=== PATIENT | male | born 1960 | race Caucasian/White ===

== ENCOUNTER 2017-08-26 19:29 | Inpatient (IN) | payer MEDICAID, OTHER ==
[~2017-08-26] VITALS: Ht 190.5 cm; Wt 68.0 kg
[2017-08-26] MEDS ORDERED: ondansetron/PF 4mg/2ml inj IV ONE ×2 (20:00→20:20)
[2017-08-26] MEDS ORDERED: normal saline 1000ML IV soln IVB ONE ×2 (20:00→21:15)
[2017-08-26 20:43] LABS: BASOPHILS % (AUTO) 0.4 % (0-1); EOSINOPHILS # (AUTO) 0.1 X10'3 (0-0.9); EOSINOPHILS % (AUTO) 1.3 % (0-6); HEMATOCRIT 47.3 % (42.0-52.0); HEMOGLOBIN 15.7 g/dl (14.0-17.9); LYMPHOCYTES # (AUTO) 0.9 X10'3 (1.1-4.8); LYMPHOCYTES % (AUTO) 8.6 % (21-51); MEAN CORPUSCULAR HEMOGLOBIN 26.9 PG (27.0-31.0); MEAN CORPUSCULAR HGB CONC 33.2 % (33.0-36.5); MEAN CORPUSCULAR VOLUME 81.1 FL (78-98); MEAN PLATELET VOLUME 8.5 FL (7.4-10.4); NEUTROPHILS # (AUTO) 8.8 X10'3 (1.8-7.7); NEUTROPHILS % (AUTO) 80.7 % (42-75); PLATELET COUNT 364 X10'3 (140-440); RED BLOOD COUNT 5.84 X10'6 (4.70-6.10); RED CELL DISTRIBUTION WIDTH 13.2 % (11.5-14.5); WHITE BLOOD COUNT 10.9 X10'3 (4.5-11.0)
[2017-08-26 20:55] LABS: ABG BASE EXCESS -17.3 mmol/L (-2.0-3.0); ABG HCO3 9.1 mmol/L (22.0-26.0); ABG OXYGEN SATURATION 97.5 % (95-98); ABG PCO2 (T) 24.9 mmHg (35.0-48.0); ABG PH (T) 7.183 (7.350-7.450); ABG PO2 (T) 105.2 mmHg (83-108); FCOHb 0.8 % (0.5-1.5); FMetHb 0.3 % (0.3-1.12); FO2Hb 96.4 % (94-100); PATIENT TEMPERATURE 37.1; RESPIRATORY RATE (OBSERVED) 18 b/min; TOTAL HEMOGLOBIN 15.3 G/dl (14.0-18.0)
[2017-08-26] MEDS ORDERED: temazepam 15mg capsule PO PRN (21:00)
[2017-08-26 21:06] LABS: ALANINE AMINOTRANSFERASE 16 U/L (12-78); ALBUMIN 3.6 G/DL (3.4-5.0); ALBUMIN/GLOBULIN RATIO 0.9 (1.1-1.5); ALKALINE PHOSPHATASE 106 IU/L (46-116); ANION GAP 25 (8-16); ASPARTATE AMINO TRANSFERASE 22 U/L (10-37); BILIRUBIN,TOTAL 0.6 MG/DL (0.1-1.0); BLOOD UREA NITROGEN 37 MG/DL (7-18); BUN/CREATININE RATIO 25.5 (5.4-32.0); CALCIUM 8.9 MG/DL (8.5-10.1); CHLORIDE 100 MMOL/L (99-107); CREATININE 1.45 MG/DL (0.60-1.10); LIPASE < 50 U/L (73-393); POTASSIUM 5.3 MMOL/L (3.5-5.1); SODIUM 138 MMOL/L (135-145); TOTAL PROTEIN 7.8 G/DL (6.4-8.2); TROPONIN I < 0.04 NG/ML (0.0-0.05); eGFR 50 ML/MIN
[2017-08-26 21:09] LABS: GLUCOSE 495 MG/DL (70-104); TOTAL CARBON DIOXIDE 13.3 MMOL/L (24-32)
[2017-08-26] MEDS ORDERED: insulin regular, human 10 units/0.1 ml syringe IV ONE (21:15)
[2017-08-26] MEDS ORDERED: potassium CL 20mEq in D5-1/2NS 1,000 ML IV PRN (21:44)
[2017-08-26] MEDS ORDERED: insulin regular, DKA only 100 UNIT in normal saline 100ml IV soln 99 ML IV SCH ×2 (21:44)
[2017-08-26] MEDS ORDERED: sodium bicarbonate (8.4%) inj. 50 MEQ in sodium chloride 0.45% 500ml 250 ML IV PRN (21:44)
[2017-08-26] MEDS ORDERED: potassium Cl 20 mEq SR tablet PO PRN ×2 (21:45)
[2017-08-26] MEDS ORDERED: sodium phosphate inj. 15 MMOL in dextrose 5%-water 150 ML IV PRN (21:45)
[2017-08-26] MEDS ORDERED: acetaminophen 325mg tablet PO PRN ×2 (21:45)
[2017-08-26] MEDS ORDERED: sodium phosphate inj. 30 MMOL in dextrose 5%-water 250 ML IV PRN (21:45)
[2017-08-26] MEDS ORDERED: metoclopramide 5 mg/ml inj IV PRN (21:45)
[2017-08-26] MEDS ORDERED: ondansetron/PF 4mg/2ml inj IV PRN (21:45)
[2017-08-26] MEDS ORDERED: Neutra Phos packet PO PRN (21:45)
[2017-08-26] MEDS ORDERED: HYDROcodone/acetaminophen 10/325mg tab PO PRN (21:45)
[2017-08-26] MEDS ORDERED: magnesium hydroxide 30ml (MOM) UD suspension PO PRN (21:45)
[2017-08-26] MEDS ORDERED: mag hydrox/Alum hydrox/simeth 30ml oral suspension PO PRN (21:45)
[2017-08-26] MEDS ORDERED: potassium Cl 40MEQ/NS 500ml 500 ML IV PRN ×2 (21:45)
[2017-08-26] MEDS ORDERED: insulin regular, human 10 units/0.1 ml syringe SQ ONE (23:00)
[2017-08-26] MEDS: enoxaparin 40mg/0.4ml syringe SUBCUT SCH (23:09)
[2017-08-26] MEDS: normal saline 1000ml 1,000 ML IV SCH (23:09)
[2017-08-27] MEDS: normal saline 1000ml 1,000 ML IV SCH ×4 (02:10→23:14)
[2017-08-27 02:37] LABS: CLARITY,URINE CLEAR (Clear); COLOR,URINE YELLOW (Yellow); GLUCOSE, URINE >=1000 mg/dl (Neg); KETONES,URINE >=80 mg/dl (Neg); LEUKOCYTE ESTERASE ,URINE NEGATIVE (Neg); NITRITES, URINE NEGATIVE (Neg); OCCULT BLOOD,URINE NEGATIVE (Neg); PROTEIN,URINE TRACE mg/dl (Neg); UROBILINOGEN,URINE 0.2 E.U/dL (0.2-1.0)
[2017-08-27 02:48] LABS: UA COLLECTION TYPE CLN CATCH MIDSTREAM
[2017-08-27 02:49] LABS: BACTERIA,URINE FEW /HPF (Neg); RBC,URINE NONE SEEN /HPF (0-2); SQUAMOUS EPITHELIAL CELL,UR FEW /LPF (FEW); WBC,URINE NONE SEEN /HPF (0-4)
[2017-08-27 07:57] LABS: ALBUMIN 2.8 G/DL (3.4-5.0); ANION GAP 10 (8-16); BLOOD UREA NITROGEN 25 MG/DL (7-18); BUN/CREATININE RATIO 20.2 (5.4-32.0); CALCIUM 8.2 MG/DL (8.5-10.1); CHLORIDE 112 MMOL/L (99-107); CREATININE 1.24 MG/DL (0.60-1.10); GLUCOSE 131 MG/DL (70-104); POTASSIUM 3.4 MMOL/L (3.5-5.1); SODIUM 145 MMOL/L (135-145); TOTAL CARBON DIOXIDE 23.3 MMOL/L (24-32); eGFR 60 ML/MIN
[2017-08-27 08:00] VITALS: BP 130/71
[2017-08-27] MEDS: K and/or MAG REPLACEMENT MC SCH (08:00)
[2017-08-27 08:17] LABS: PHOSPHORUS 0.7 MG/DL (2.3-4.5)
[2017-08-27] MEDS: enoxaparin 40mg/0.4ml syringe SUBCUT SCH (09:08)
[2017-08-27] MEDS ORDERED: potassium phosphate inj 30 MMOL in normal saline 500ml IV soln 490 ML IV ONE (09:30)
[2017-08-27 10:56] LABS: ALANINE AMINOTRANSFERASE 9 U/L (12-78); ALBUMIN 2.8 G/DL (3.4-5.0); ALBUMIN/GLOBULIN RATIO 0.9 (1.1-1.5); ALKALINE PHOSPHATASE 74 IU/L (46-116); ANION GAP 8 (8-16); ASPARTATE AMINO TRANSFERASE 19 U/L (10-37); BILIRUBIN,TOTAL 0.4 MG/DL (0.1-1.0); BLOOD UREA NITROGEN 23 MG/DL (7-18); BUN/CREATININE RATIO 18.4 (5.4-32.0); CALCIUM 8.1 MG/DL (8.5-10.1); CHLORIDE 113 MMOL/L (99-107); CREATININE 1.25 MG/DL (0.60-1.10); GLUCOSE 83 MG/DL (70-104); MAGNESIUM 1.6 MG/DL (1.5-2.4); POTASSIUM 3.5 MMOL/L (3.5-5.1); SODIUM 147 MMOL/L (135-145); TOTAL CARBON DIOXIDE 26.4 MMOL/L (24-32); eGFR 60 ML/MIN
[2017-08-27 10:59] LABS: PHOSPHORUS 1.1 MG/DL (2.3-4.5)
[2017-08-27 11:00] VITALS: BP 123/70
[2017-08-27] MEDS ORDERED: glucagon, human recombinant 1mg kit SUBCUT PRN (11:55)
[2017-08-27] MEDS ORDERED: MESSAGE TO PHARMACY PO ONE (11:55)
[2017-08-27] MEDS ORDERED: dextrose 50%-water 50ml dispensing syringe IV PRN ×2 (11:55)
[2017-08-27] MEDS ORDERED: dextrose ORAL solution 15 GM/59 ML bottle PO PRN ×2 (11:55)
[2017-08-27] MEDS: insulin Lispro (HumaLOG) vial - multi-dose SQ SCH ×2 (11:58→18:49)
[2017-08-27 12:17] LABS: HEMOGLOBIN A1C 11.4 % (4.5-6.2)
[2017-08-27] MEDS: Neutra Phos packet PO SCH ×2 (13:00→21:01)
[2017-08-27 15:00] VITALS: BP 112/59
[2017-08-27 18:00] VITALS: BP 124/56
[2017-08-27] MEDS ORDERED: insulin glargine (Lantus) pen - multi-dose SQ SCH (21:00)
[2017-08-27 22:00] VITALS: BP 112/74
[2017-08-28 02:00] VITALS: BP 103/64
[2017-08-28 06:00] VITALS: BP 111/72
[2017-08-28] MEDS: K and/or MAG REPLACEMENT MC SCH (08:00)
[2017-08-28] MEDS: Neutra Phos packet PO SCH ×2 (08:12→12:47)
[2017-08-28] MEDS: normal saline 1000ml 1,000 ML IV SCH (08:13)
[2017-08-28] MEDS: enoxaparin 40mg/0.4ml syringe SUBCUT SCH (08:13)
[2017-08-28] MEDS: insulin Lispro (HumaLOG) vial - multi-dose SQ SCH (08:57)
[2017-08-28 11:00] VITALS: BP 105/66
== END 2017-08-28 13:40 | disposition home or self-care (01) | DRG 420 ==
LOC: ER 19:30 → ED HOLD 21:44 → PCU 3S 08-27 07:40
PROVIDERS: ADMIT Hospitalist; ATTEND Family Medicine
DX: E10.10 Type 1 diabetes mellitus with ketoacidosis without coma (principal); E87.0 Hyperosmolality and hypernatremia; E10.22 Type 1 diabetes mellitus with diabetic chronic kidney disease; E83.39 Other disorders of phosphorus metabolism; E86.0 Dehydration; E10.40 Type 1 diabetes mellitus with diabetic neuropathy, unspecified; N18.9 Chronic kidney disease, unspecified; Z79.4 Long term (current) use of insulin; Z90.49 Acquired absence of other specified parts of digestive tract; Z79.899 Other long term (current) drug therapy; Z68.1 Body mass index [BMI] 19.9 or less, adult; Z91.19 Patient's noncompliance with other medical treatment and regimen
CPT/HCPCS: 36415; 36600; 71045; 80048; 80053; 81001; 82803; 82948; 83036; 83690; 83735; 84100; 84484; 85018; 85025; 87070; 93005; 96374; 96376; 97162; 99285; J1650; J1815; J2405; J7030

== ENCOUNTER 2020-05-15 12:46 | Inpatient (IN) | payer MEDICAID, MEDICARE ==
[~2020-05-15] VITALS: Ht 190.5 cm; Wt 84.1 kg
[2020-05-15 13:39] LABS: BASOPHILS # (AUTO) 0.1 X10'3 (0-0.2); BASOPHILS % (AUTO) 0.6 % (0-1); EOSINOPHILS # (AUTO) 0.2 X10'3 (0-0.9); EOSINOPHILS % (AUTO) 1.9 % (0-6); HEMATOCRIT 37.6 % (42.0-52.0); HEMOGLOBIN 12.3 g/dl (14.0-17.9); LYMPHOCYTES # (AUTO) 1.8 X10'3 (1.1-4.8); MEAN CORPUSCULAR HEMOGLOBIN 26.9 PG (27.0-31.0); MEAN CORPUSCULAR HGB CONC 32.8 g/dL (33.0-36.5); MEAN CORPUSCULAR VOLUME 82.1 FL (78-98); MONOCYTES # (AUTO) 0.6 X10'3 (0-0.9); MONOCYTES % (AUTO) 4.9 % (2-12); NEUTROPHILS # (AUTO) 9.3 X10'3 (1.8-7.7); NEUTROPHILS % (AUTO) 77.6 % (42-75); PLATELET COUNT 284 X10'3 (140-440); RED BLOOD COUNT 4.58 X10'6 (4.70-6.10); RED CELL DISTRIBUTION WIDTH 12.9 % (11.5-14.5)
[2020-05-15 13:43] LABS: PARTIAL THROMBOPLASTIN TIME 24 SECONDS (22-32)
[2020-05-15 13:57] LABS: ALANINE AMINOTRANSFERASE 30 U/L (12-78); ALBUMIN 3.8 G/DL (3.4-5.0); ALBUMIN/GLOBULIN RATIO 1.1 (1.1-1.5); ALKALINE PHOSPHATASE 114 IU/L (46-116); ANION GAP 11 (8-16); ASPARTATE AMINO TRANSFERASE 45 U/L (10-37); BILIRUBIN,TOTAL 0.7 MG/DL (0.1-1.0); BLOOD UREA NITROGEN 17 MG/DL (7-18); BUN/CREATININE RATIO 19.1 (5.4-32.0); CALCIUM 8.8 MG/DL (8.5-10.1); CHLORIDE 103 MMOL/L (99-107); CREATININE 0.89 MG/DL (0.60-1.10); GLUCOSE 288 MG/DL (70-104); POTASSIUM 4.1 MMOL/L (3.5-5.1); SODIUM 138 MMOL/L (135-145); TOTAL CARBON DIOXIDE 24.4 MMOL/L (24-32); TOTAL PROTEIN 7.3 G/DL (6.4-8.2); eGFR 87 ML/MIN
[2020-05-15] MEDS ORDERED: morphine 4 MG/ML inj SYRINge IV ONE (14:00)
--- NOTE | 2020-05-15 14:35 | NUR ---
PT TO CT SCAN IN STABLE CONDITION VIA PHILLIP
[2020-05-15] MEDS ORDERED: mag hydrox/Alum hydrox/simeth 30ml oral suspension PO PRN (15:30)
[2020-05-15] MEDS ORDERED: magnesium 4gm in 100ml NS 100 ML IV PRN (15:30)
[2020-05-15] MEDS ORDERED: diphenhydrAMINE 25mg capsule PO PRN (15:30)
[2020-05-15] MEDS ORDERED: acetaminophen 325mg tablet PO PRN ×2 (15:30)
[2020-05-15] MEDS ORDERED: acetaminophen 650mg rectal suppository RC PRN (15:30)
[2020-05-15] MEDS ORDERED: magnesium hydroxide 30ml (MOM) UD suspension PO PRN (15:30)
[2020-05-15] MEDS ORDERED: magnesium 2GM in 50ml NS 50 ML IV PRN (15:30)
[2020-05-15] MEDS ORDERED: potassium Cl 20 mEq SR tablet PO PRN ×2 (15:30)
[2020-05-15] MEDS ORDERED: morphine 2 MG/ML inj. syringe IV PRN (15:30)
[2020-05-15] MEDS ORDERED: potassium CL 10mEq/100ml bag 100 ML IV PRN ×2 (15:30)
[2020-05-15] MEDS ORDERED: bisacodyl 10mg suppository rectal RC PRN (15:30)
[2020-05-15] MEDS: normal saline 1000ml 1,000 ML IV SCH (15:37)
[2020-05-15 15:48] LABS: CLARITY,URINE CLEAR (Clear); COLOR,URINE YELLOW (Yellow); GLUCOSE, URINE >=1000 mg/dl (Neg); KETONES,URINE TRACE mg/dl (Neg); LEUKOCYTE ESTERASE ,URINE NEGATIVE (Neg); NITRITES, URINE NEGATIVE (Neg); OCCULT BLOOD,URINE NEGATIVE (Neg); PROTEIN,URINE NEGATIVE (Neg); UA COLLECTION TYPE URINAL
[2020-05-15 15:55] LABS: SQUAMOUS EPITHELIAL CELL,UR FEW /LPF (FEW)
[2020-05-15 15:56] LABS: BACTERIA,URINE FEW /HPF (Neg); RBC,URINE 0-2 /HPF (0-2); WBC,URINE NONE SEEN /HPF (0-4)
[2020-05-15] MEDS ORDERED: GLIM2TAB6 PO (15:56)
[2020-05-15] MEDS ORDERED: METF-900 PO (15:59)
[2020-05-15] MEDS ORDERED: ATOR40TA72 PO (15:59)
[2020-05-15] MEDS ORDERED: INSU100I31 SQ (15:59)
[2020-05-15 16:09] LABS: HEMOGLOBIN A1C 8.4 % (4.5-6.2)
[2020-05-15] MEDS ORDERED: GABA300C PO (16:19)
[2020-05-15] MEDS: morphine 2 MG/ML inj. syringe IV PRN ×2 (17:17→22:59)
[2020-05-15] MEDS: ondansetron/PF 4mg/2ml inj IV PRN ×2 (17:18→23:30)
[2020-05-15] MEDS: HYDROcodone/acetaminophen 10/325mg tab PO PRN (18:56)
--- NOTE | 2020-05-15 19:20 | NUR ---
Received report from Kristina GUERRERO from ED. Patient came up to the floor via gurney. Used slide board to get patient into bed. Bed placed in locked & low position. Call light placed within reach and educated on.
[2020-05-15 19:35] VITALS: BP 142/76
[2020-05-15] MEDS: K and/or MAG REPLACEMENT MC SCH (20:00)
[2020-05-15] MEDS: heparin, porcine 5000 units/ml vial SQ SCH (20:04)
[2020-05-15] MEDS ORDERED: temazepam 15mg capsule PO PRN (21:00)
--- NOTE | 2020-05-15 21:04 | NUR ---
Called hospitalist for hyperglycemic protocol. He okayed order.
[2020-05-15] MEDS ORDERED: MESSAGE TO PHARMACY PO ONE (21:05)
[2020-05-15] MEDS ORDERED: glucagon, human recombinant 1mg kit SUBCUT PRN (21:05)
[2020-05-15] MEDS ORDERED: dextrose ORAL solution 15 GM/59 ML bottle PO PRN ×2 (21:05)
[2020-05-15] MEDS ORDERED: dextrose 50%-water 50ml dispensing syringe IV PRN ×2 (21:05)
[2020-05-15 22:00] VITALS: BP 138/75
[2020-05-16] VITALS (17 sets, daily range): BP systolic 99–148; BP diastolic 62–88
[2020-05-16] MEDS: normal saline 1000ml 1,000 ML IV SCH ×3 (01:35→18:39)
[2020-05-16] MEDS: HYDROcodone/acetaminophen 10/325mg tab PO PRN ×3 (03:13→22:33)
[2020-05-16 05:35] LABS: ALANINE AMINOTRANSFERASE 28 U/L (12-78); ALBUMIN 3.3 G/DL (3.4-5.0); ALKALINE PHOSPHATASE 92 IU/L (46-116); ANION GAP 7 (8-16); ASPARTATE AMINO TRANSFERASE 41 U/L (10-37); BLOOD UREA NITROGEN 16 MG/DL (7-18); BUN/CREATININE RATIO 20.8 (5.4-32.0); CALCIUM 8.1 MG/DL (8.5-10.1); CHLORIDE 106 MMOL/L (99-107); CHOL/HDL RATIO 2.6 (0.00-4.99); CHOLESTEROL 103 MG/DL (0-200); CREATININE 0.77 MG/DL (0.60-1.10); GLUCOSE 132 MG/DL (70-104); HDL CHOLESTEROL 40 MG/DL (35-60); LDL CHOLESTEROL 53 MG/DL (50-100); MAGNESIUM 1.3 MG/DL (1.5-2.4); POTASSIUM 3.9 MMOL/L (3.5-5.1); SODIUM 141 MMOL/L (135-145); TOTAL CARBON DIOXIDE 28.2 MMOL/L (24-32); TOTAL PROTEIN 6.5 G/DL (6.4-8.2); TRIGLYCERIDES 64 MG/DL (20-135); eGFR > 90 ML/MIN
[2020-05-16 05:40] LABS: BASOPHILS # (AUTO) 0.1 X10'3 (0-0.2); BASOPHILS % (AUTO) 0.7 % (0-1); EOSINOPHILS # (AUTO) 0.2 X10'3 (0-0.9); HEMATOCRIT 35.1 % (42.0-52.0); HEMOGLOBIN 11.7 g/dl (14.0-17.9); LYMPHOCYTES # (AUTO) 1.7 X10'3 (1.1-4.8); LYMPHOCYTES % (AUTO) 18.5 % (21-51); MEAN CORPUSCULAR HEMOGLOBIN 27.3 PG (27.0-31.0); MEAN CORPUSCULAR HGB CONC 33.2 g/dL (33.0-36.5); MEAN CORPUSCULAR VOLUME 82.2 FL (78-98); MEAN PLATELET VOLUME 9.1 FL (7.4-10.4); MONOCYTES # (AUTO) 0.7 X10'3 (0-0.9); MONOCYTES % (AUTO) 7.5 % (2-12); NEUTROPHILS # (AUTO) 6.6 X10'3 (1.8-7.7); NEUTROPHILS % (AUTO) 71.3 % (42-75); PLATELET COUNT 223 X10'3 (140-440); RED BLOOD COUNT 4.27 X10'6 (4.70-6.10); RED CELL DISTRIBUTION WIDTH 12.6 % (11.5-14.5); WHITE BLOOD COUNT 9.3 X10'3 (4.5-11.0)
--- NOTE | 2020-05-16 06:33 | NUR ---
Problems reprioritized. Patient report given, questions answered & plan of care reviewed with Suzie GUERRERO.
--- NOTE | 2020-05-16 07:50 | NUR ---
PAGER ID: [phone] MESSAGE: [phone] [facility] is requesting a COVID test, they believe it is policy. Suzie [phone]
[2020-05-16] MEDS: K and/or MAG REPLACEMENT MC SCH ×2 (08:00→20:00)
[2020-05-16] MEDS: heparin, porcine 5000 units/ml vial SQ SCH ×2 (08:00→20:16)
[2020-05-16] MEDS ORDERED: famotidine 20mg tablet PO ONE (09:22)
[2020-05-16] MEDS: lisinopril 20mg tablet PO SCH (09:35)
[2020-05-16] MEDS: atorvastatin 20mg tablet PO SCH (09:38)
--- NOTE | 2020-05-16 11:00 | NUR ---
patient to OR, report given to Mary GUERRERO
[2020-05-16] MEDS: gabapentin 300mg capsule PO SCH ×2 (13:00→20:16)
[2020-05-16] MEDS ORDERED: labetalol 20mg/4ml (5mg/ml) syringe IV PRN (14:25)
[2020-05-16] MEDS ORDERED: fentaNYL/PF 50MCG/1 ML 2ML syringe IV PRN ×2 (14:25)
[2020-05-16] MEDS ORDERED: ondansetron/PF 4mg/2ml inj IV PRN (14:25)
[2020-05-16] MEDS ORDERED: ringers solution, lacted 1,000 ML IV SCH (14:25)
[2020-05-16] MEDS ORDERED: morphine 4 MG/ML inj SYRINge IV PRN (14:25)
[2020-05-16] MEDS ORDERED: hydrALAZINE 20mg/ml inj. IV PRN (14:25)
[2020-05-16] MEDS ORDERED: morphine 2 MG/ML inj. syringe IV PRN (14:25)
[2020-05-16] MEDS ORDERED: MIDAZolam 5mg/5ml vial ONE (14:42)
[2020-05-16] MEDS ORDERED: fentaNYL/PF 50MCG/1 ML 2ML syringe ONE (14:42)
[2020-05-16] MEDS ORDERED: ceFAZolin 1000mg inj ONE ×2 (14:57)
[2020-05-16] MEDS ORDERED: ondansetron/PF 4mg/2ml inj ONE (14:58)
--- NOTE | 2020-05-16 15:34 | NUR ---
Received from OR via , accompanied by Anesthesiologist DR JOSEPH and report given by Anesthesiolgist. PT IS AWAKE, BUT SLEEPY. SKIN WARM AND PINK, NO C/O PAIN, SPINAL ANESTHESIA WITH DERMATOME LEVEL T10, MOVES BILAT UE'S, HAMPTON TO GRAVITY, 2 PIV'S LEFT 20G FA, 18G AC, HAMPTON TO GRAVITY DARK YELLOW CLEAR, RIGHT HIP ISLAND DRESSING X 2 CD, LR 100ML/HR.
--- NOTE | 2020-05-16 16:01 | NUR ---
Report called to receiving nurse. Transferred via BED Belongings . Special Issues communicated to receiving nurse GALLITO RN. PT IS AWAKE, ALERT, SENSATION LEVEL T10, DOPPLER BILAT PEDAL PULSES, PIV'S PATENT, SCD'S, VSS, HAMPTON TO GRAVITY, NO C/O PAIN, ISLAND DRESSING RIGHT HIP CD, PT KIMMY FLUIDS. HAD SOME NAUSEA WITH ZOFRAN GIVEN.
[2020-05-16] MEDS: ondansetron/PF 4mg/2ml inj IV PRN (17:04)
[2020-05-16] MEDS ORDERED: proCHLORperazine 10 MG/2 ml inj IV PRN (17:10)
--- NOTE | 2020-05-16 18:27 | NUR ---
Problems reprioritized. Patient report given, questions answered & plan of care reviewed with Gabby GUERRERO.
--- NOTE | 2020-05-16 18:30 | NUR ---
Patient in room ORTHO 4009. I have received report from Suzie GUERRERO and had the opportunity to ask questions and assume patient care.
[2020-05-16] MEDS: morphine 2 MG/ML inj. syringe IV PRN (20:14)
[2020-05-16] MEDS: magnesium Cl slow-release 64mg tablet PO PRN (20:17)
[2020-05-16] MEDS: insulin glargine (Lantus) pen - multi-dose SQ SCH (21:00)
[2020-05-16] MEDS: ceFAZolin 2gm in dextrose, iso 50 ML IV SCH (23:33)
[2020-05-17] VITALS (7 sets, daily range): BP systolic 87–152; BP diastolic 50–84
[2020-05-17] MEDS ORDERED: ceFAZolin/D5W- 1GM premix 50 ML IV SCH
[2020-05-17] MEDS: normal saline 1000ml 1,000 ML IV SCH ×3 (03:58→23:53)
[2020-05-17] MEDS: HYDROcodone/acetaminophen 10/325mg tab PO PRN ×2 (05:30→10:28)
[2020-05-17 05:52] LABS: BASOPHILS % (AUTO) 0.4 % (0-1); EOSINOPHILS # (AUTO) 0.3 X10'3 (0-0.9); EOSINOPHILS % (AUTO) 3.6 % (0-6); HEMATOCRIT 30.2 % (42.0-52.0); HEMOGLOBIN 10.3 g/dl (14.0-17.9); LYMPHOCYTES # (AUTO) 1.3 X10'3 (1.1-4.8); LYMPHOCYTES % (AUTO) 16.3 % (21-51); MEAN CORPUSCULAR HEMOGLOBIN 28.4 PG (27.0-31.0); MEAN CORPUSCULAR VOLUME 83.4 FL (78-98); MEAN PLATELET VOLUME 8.7 FL (7.4-10.4); MONOCYTES # (AUTO) 0.7 X10'3 (0-0.9); MONOCYTES % (AUTO) 8.8 % (2-12); NEUTROPHILS # (AUTO) 5.7 X10'3 (1.8-7.7); NEUTROPHILS % (AUTO) 70.9 % (42-75); PLATELET COUNT 177 X10'3 (140-440); RED BLOOD COUNT 3.62 X10'6 (4.70-6.10); RED CELL DISTRIBUTION WIDTH 12.6 % (11.5-14.5); WHITE BLOOD COUNT 8.1 X10'3 (4.5-11.0)
--- NOTE | 2020-05-17 06:36 | NUR ---
Problems reprioritized. Patient report given, questions answered & plan of care reviewed with Suzie GUERRERO.
--- NOTE | 2020-05-17 06:39 | NUR ---
Patient in room ORTHO 4009. I have received report from Gabby GUERRERO and had the opportunity to ask questions and assume patient care.
[2020-05-17 06:41] LABS: ALANINE AMINOTRANSFERASE 24 U/L (12-78); ALBUMIN 2.9 G/DL (3.4-5.0); ALKALINE PHOSPHATASE 75 IU/L (46-116); ANION GAP 8 (8-16); ASPARTATE AMINO TRANSFERASE 38 U/L (10-37); BILIRUBIN,TOTAL 0.9 MG/DL (0.1-1.0); BLOOD UREA NITROGEN 13 MG/DL (7-18); BUN/CREATININE RATIO 15.9 (5.4-32.0); CALCIUM 7.8 MG/DL (8.5-10.1); CHLORIDE 107 MMOL/L (99-107); CREATININE 0.82 MG/DL (0.60-1.10); GLUCOSE 104 MG/DL (70-104); MAGNESIUM 1.3 MG/DL (1.5-2.4); PHOSPHORUS 2.7 MG/DL (2.3-4.5); POTASSIUM 3.7 MMOL/L (3.5-5.1); SODIUM 141 MMOL/L (135-145); TOTAL CARBON DIOXIDE 26.4 MMOL/L (24-32); TOTAL PROTEIN 5.8 G/DL (6.4-8.2); eGFR > 90 ML/MIN
[2020-05-17] MEDS: K and/or MAG REPLACEMENT MC SCH ×2 (08:00→21:01)
[2020-05-17] MEDS ORDERED: aspirin 325mg tablet PO SCH (08:30)
[2020-05-17] MEDS: gabapentin 300mg capsule PO SCH ×3 (10:26→21:00)
[2020-05-17] MEDS: ceFAZolin 2gm in dextrose, iso 50 ML IV SCH (10:26)
[2020-05-17] MEDS: magnesium Cl slow-release 64mg tablet PO PRN ×2 (10:26→21:00)
[2020-05-17] MEDS: lisinopril 20mg tablet PO SCH (10:27)
[2020-05-17] MEDS: atorvastatin 20mg tablet PO SCH (10:27)
[2020-05-17] MEDS: enoxaparin 40mg/0.4ml syringe SUBCUT SCH (10:34)
--- NOTE | 2020-05-17 12:40 | NUR ---
F/u: Written high protein and DM eds w/ RD contact information placed in pt chart. To f/u 05/20 for initial assessment. Addendum: 05/17/20 at [address] Amended: Links added.
[2020-05-17] MEDS ORDERED: loperamide 2mg capsule PO PRN (13:35)
[2020-05-17] MEDS: insulin Lispro (HumaLOG) vial - multi-dose SQ SCH ×2 (14:11→18:54)
--- NOTE | 2020-05-17 18:29 | NUR ---
patient report to Gabby hernandez
--- NOTE | 2020-05-17 18:30 | NUR ---
Patient in room ORTHO 4009. I have received report from Suzie GUERRERO and had the opportunity to ask questions and assume patient care.
[2020-05-17] MEDS: HYDROcodone/acetaminophen 5mg/325mg tablet PO PRN (21:01)
[2020-05-17] MEDS: insulin glargine (Lantus) pen - multi-dose SQ SCH (21:04)
[2020-05-18] MEDS: HYDROcodone/acetaminophen 5mg/325mg tablet PO PRN ×2 (05:31→18:56)
[2020-05-18 06:00] VITALS: BP 100/56
--- NOTE | 2020-05-18 06:13 | NUR ---
Problems reprioritized. Patient report given, questions answered & plan of care reviewed with Pina GUERRERO.
[2020-05-18 06:30] LABS: BASOPHILS % (AUTO) 0.3 % (0-1); EOSINOPHILS # (AUTO) 0.2 X10'3 (0-0.9); EOSINOPHILS % (AUTO) 2.6 % (0-6); HEMATOCRIT 28.9 % (42.0-52.0); HEMOGLOBIN 9.5 g/dl (14.0-17.9); LYMPHOCYTES # (AUTO) 1.1 X10'3 (1.1-4.8); MEAN CORPUSCULAR HEMOGLOBIN 27.4 PG (27.0-31.0); MONOCYTES % (AUTO) 10.7 % (2-12); NEUTROPHILS # (AUTO) 6.8 X10'3 (1.8-7.7); NEUTROPHILS % (AUTO) 74.4 % (42-75); PLATELET COUNT 166 X10'3 (140-440); RED BLOOD COUNT 3.48 X10'6 (4.70-6.10); RED CELL DISTRIBUTION WIDTH 12.6 % (11.5-14.5); WHITE BLOOD COUNT 9.2 X10'3 (4.5-11.0)
[2020-05-18 06:43] LABS: ALANINE AMINOTRANSFERASE 21 U/L (12-78); ALBUMIN 2.9 G/DL (3.4-5.0); ALBUMIN/GLOBULIN RATIO 0.9 (1.1-1.5); ALKALINE PHOSPHATASE 75 IU/L (46-116); ANION GAP 9 (8-16); ASPARTATE AMINO TRANSFERASE 40 U/L (10-37); BILIRUBIN,TOTAL 0.8 MG/DL (0.1-1.0); BLOOD UREA NITROGEN 21 MG/DL (7-18); BUN/CREATININE RATIO 18.8 (5.4-32.0); CALCIUM 7.6 MG/DL (8.5-10.1); CHLORIDE 103 MMOL/L (99-107); CREATININE 1.12 MG/DL (0.60-1.10); GLUCOSE 250 MG/DL (70-104); MAGNESIUM 1.5 MG/DL (1.5-2.4); PHOSPHORUS 1.8 MG/DL (2.3-4.5); POTASSIUM 3.7 MMOL/L (3.5-5.1); SODIUM 135 MMOL/L (135-145); TOTAL CARBON DIOXIDE 22.6 MMOL/L (24-32); TOTAL PROTEIN 6.1 G/DL (6.4-8.2); eGFR 67 ML/MIN
[2020-05-18] MEDS: atorvastatin 20mg tablet PO SCH (08:00)
[2020-05-18] MEDS: lisinopril 20mg tablet PO SCH (08:00)
[2020-05-18] MEDS: K and/or MAG REPLACEMENT MC SCH ×2 (08:00→20:00)
[2020-05-18] MEDS: enoxaparin 40mg/0.4ml syringe SUBCUT SCH (08:00)
[2020-05-18] MEDS: gabapentin 300mg capsule PO SCH ×3 (08:16→21:05)
[2020-05-18 10:00] VITALS: BP 102/60
[2020-05-18] MEDS: normal saline 1000ml 1,000 ML IV SCH ×2 (13:30→23:30)
[2020-05-18] MEDS: insulin Lispro (HumaLOG) vial - multi-dose SQ SCH ×2 (14:20→18:53)
[2020-05-18 18:00] VITALS: BP 140/74
--- NOTE | 2020-05-18 18:23 | NUR ---
Problems reprioritized. Patient report given, questions answered & plan of care reviewed with Nupur.
[2020-05-18] MEDS: insulin glargine (Lantus) pen - multi-dose SQ SCH (21:12)
[2020-05-18 22:00] VITALS: BP 109/64
[2020-05-19] MEDS: HYDROcodone/acetaminophen 5mg/325mg tablet PO PRN (05:06)
--- NOTE | 2020-05-19 06:24 | NUR ---
Problems reprioritized. Patient report given, questions answered & plan of care reviewed with mary Archer.
[2020-05-19 06:53] LABS: BASOPHILS # (AUTO) 0.1 X10'3 (0-0.2); BASOPHILS % (AUTO) 0.6 % (0-1); EOSINOPHILS # (AUTO) 0.2 X10'3 (0-0.9); MONOCYTES # (AUTO) 0.9 X10'3 (0-0.9); PLATELET COUNT 200 X10'3 (140-440)
[2020-05-19 06:55] LABS: EOSINOPHILS % (AUTO) 2.5 % (0-6); HEMATOCRIT 29.3 % (42.0-52.0); HEMOGLOBIN 9.8 g/dl (14.0-17.9); LYMPHOCYTES % (AUTO) 10.6 % (21-51); MEAN CORPUSCULAR HEMOGLOBIN 27.5 PG (27.0-31.0); MEAN CORPUSCULAR HGB CONC 33.5 g/dL (33.0-36.5); MEAN PLATELET VOLUME 8.5 FL (7.4-10.4); MONOCYTES % (AUTO) 9.9 % (2-12); NEUTROPHILS # (AUTO) 7.1 X10'3 (1.8-7.7); NEUTROPHILS % (AUTO) 76.4 % (42-75); RED BLOOD COUNT 3.58 X10'6 (4.70-6.10); RED CELL DISTRIBUTION WIDTH 12.7 % (11.5-14.5); WHITE BLOOD COUNT 9.3 X10'3 (4.5-11.0)
[2020-05-19 07:22] LABS: ALANINE AMINOTRANSFERASE 23 U/L (12-78); ALBUMIN 2.9 G/DL (3.4-5.0); ALBUMIN/GLOBULIN RATIO 0.8 (1.1-1.5); ALKALINE PHOSPHATASE 81 IU/L (46-116); ANION GAP 10 (8-16); ASPARTATE AMINO TRANSFERASE 47 U/L (10-37); BILIRUBIN,TOTAL 0.8 MG/DL (0.1-1.0); BLOOD UREA NITROGEN 14 MG/DL (7-18); BUN/CREATININE RATIO 17.3 (5.4-32.0); CALCIUM 8.5 MG/DL (8.5-10.1); CHLORIDE 105 MMOL/L (99-107); CREATININE 0.81 MG/DL (0.60-1.10); GLUCOSE 170 MG/DL (70-104); MAGNESIUM 1.7 MG/DL (1.5-2.4); PHOSPHORUS 1.8 MG/DL (2.3-4.5); POTASSIUM 3.7 MMOL/L (3.5-5.1); SODIUM 139 MMOL/L (135-145); TOTAL CARBON DIOXIDE 23.9 MMOL/L (24-32); TOTAL PROTEIN 6.6 G/DL (6.4-8.2); eGFR > 90 ML/MIN
[2020-05-19] MEDS: gabapentin 300mg capsule PO SCH (07:25)
[2020-05-19] MEDS: atorvastatin 20mg tablet PO SCH (07:25)
[2020-05-19] MEDS: lisinopril 20mg tablet PO SCH (07:25)
[2020-05-19] MEDS: enoxaparin 40mg/0.4ml syringe SUBCUT SCH (07:26)
[2020-05-19 07:55] VITALS: BP 126/72
[2020-05-19] MEDS: K and/or MAG REPLACEMENT MC SCH (08:00)
[2020-05-19] MEDS ORDERED: aspirin 325mg tablet PO SCH (08:30)
[2020-05-19] MEDS: insulin Lispro (HumaLOG) vial - multi-dose SQ SCH (09:07)
[2020-05-19] MEDS ORDERED: HYDR-4383 PO (09:27)
[2020-05-19] MEDS ORDERED: ASPI-1 PO (09:27)
[2020-05-19] MEDS ORDERED: LISI-600 PO (09:27)
[2020-05-19 10:00] VITALS: BP 114/69
--- NOTE | 2020-05-19 11:30 | NUR ---
Patient was discharged iv and tele was removed from patient. Pateint was alert and oriented at time of discharge. Medication was sent into [facility]. belongings were picked up at the [facility] by patient.
== END 2020-05-19 11:38 | disposition home health service (06) | DRG 482 ==
LOC: ER 12:47 → ED HOLD 15:26 → EDBEDREQ 18:31 → ORTHO 4S 19:27
PROVIDERS: ADMIT Family Medicine; ATTEND Family Medicine
PROC: 0QS606Z Reposition Right Upper Femur with Intramedullary Internal Fixation Device, Open Approach (ICD-10-PCS; principal; 2020-05-16 14:42)
DX: S72.141A Displaced intertrochanteric fracture of right femur, initial encounter for closed fracture (principal); D72.829 Elevated white blood cell count, unspecified; E11.42 Type 2 diabetes mellitus with diabetic polyneuropathy; F12.90 Cannabis use, unspecified, uncomplicated; Z60.2 Problems related to living alone; E78.5 Hyperlipidemia, unspecified; I10 Essential (primary) hypertension; W10.1XXA Fall (on)(from) sidewalk curb, initial encounter; Z79.82 Long term (current) use of aspirin; Z79.899 Other long term (current) drug therapy; Z90.49 Acquired absence of other specified parts of digestive tract; Y93.89 Activity, other specified; Y92.481 Parking lot as the place of occurrence of the external cause; Y99.8 Other external cause status; R50.82 Postprocedural fever
CPT/HCPCS: 36415; 71045; 72170; 72192; 73502; 76000; 80053; 80061; 81001; 82948; 83036; 83605; 83615; 83735; 84100; 84145; 85025; 85610; 85730; 86140; 86885; 86900; 86901; 87081; 93005; 93306; 93308; 96374; 97110; 97116; 97161; 97530; 99285; A4618; C1713; G0378; J0690; J0780; J1644; J1650; J1815; J2250; J2270; J2405; J3010; J7030; J7120

== ENCOUNTER 2023-02-18 10:20 | Emergency (ER) | payer MEDICARE, MEDICAID ==
[~2023-02-18] VITALS: Ht 190.5 cm; Wt 77.3 kg
[~2023-02-18 10:20] MED LIST: ASPI-1071 PO; ATOR40TA72 PO; CHOL400T8 PO; INSU100I27 SQ; NOVLG SQ
[2023-02-18 11:07] VITALS: BP 109/77; PULSE 91; RESP 18; TEMP 98.3; O2SAT 93
[2023-02-18] MEDS ORDERED: acetaminophen 325mg tablet PO ONE (13:20)
[2023-02-18] MEDS ORDERED: gabapentin 300mg capsule PO ONE (13:20)
[2023-02-18] MEDS ORDERED: triamcinolone acetonide 40mg/ml inj IM ONE (13:20)
[2023-02-18] MEDS ORDERED: GABA300C PO (13:34)
== END 2023-02-18 13:49 | disposition home or self-care (01) ==
LOC: ER 10:21
DX: M25.562 Pain in left knee (principal); Z79.82 Long term (current) use of aspirin; Z79.899 Other long term (current) drug therapy
CPT/HCPCS: 36415; 73564; 84550; 96372; 99284; J3301